=== PATIENT | male | born 2000 | race Caucasian/White ===

== ENCOUNTER → 2024-09-10 15:12 | Outpatient (REF) | payer BC, SELFPAY | LOC: RAD 15:12 | PROVIDERS: ATTENDING PHYSICIAN Surgery; FAMILY PHYSICIAN Family Medicine | DX: Q43.1 Hirschsprung's disease (principal) | CPT/HCPCS: 74018 ==

== ENCOUNTER → 2024-09-12 15:14 | Outpatient (REF) | payer BC, SELFPAY | LOC: RAD 15:14 | PROVIDERS: FAMILY PHYSICIAN Family Medicine | DX: Q43.1 Hirschsprung's disease (principal) | CPT/HCPCS: 74018 ==

== ENCOUNTER → 2024-09-14 14:04 | Outpatient (REF) | payer BC, SELFPAY | LOC: RAD 14:04 | PROVIDERS: ATTENDING PHYSICIAN Surgery; FAMILY PHYSICIAN Family Medicine | DX: Q43.1 Hirschsprung's disease (principal) | CPT/HCPCS: 74018 ==